=== PATIENT | male | born 1970 | race Caucasian/White ===

== ENCOUNTER 2019-11-27 10:11 | Emergency (ER) | payer OTHER ==
[~2019-11-27] VITALS: Ht 172.7 cm; Wt 95.0 kg
[2019-11-27 11:57] VITALS: BP 131/89
== END 2019-11-27 11:57 | disposition home or self-care (01) | DRG 605 ==
LOC: ED 10:11
DX: S80.11XA Contusion of right lower leg, initial encounter (principal); F17.290 Nicotine dependence, other tobacco product, uncomplicated; W55.22XA Struck by cow, initial encounter

== ENCOUNTER 2020-03-31 13:50 | Emergency (ER) | payer SELFPAY ==
[~2020-03-31] VITALS: Ht 172.7 cm; Wt 95.0 kg
[2020-03-31 15:15] VITALS: BP 150/87
== END 2020-03-31 15:15 | disposition left against medical advice (07) | DRG 125 ==
LOC: ED 13:50
PROC: 0HQ1XZZ Repair Face Skin, External Approach (ICD-10-PCS; principal; 2020-03-31)
DX: S01.112A Laceration without foreign body of left eyelid and periocular area, initial encounter (principal); F17.200 Nicotine dependence, unspecified, uncomplicated; W20.8XXA Other cause of strike by thrown, projected or falling object, initial encounter; Y93.K9 Activity, other involving animal care; Y92.79 Other farm location as the place of occurrence of the external cause; Z91.19 Patient's noncompliance with other medical treatment and regimen

== ENCOUNTER 2021-06-05 22:21 | Emergency (ER) | payer OTHER ==
[~2021-06-05] VITALS: Ht 172.7 cm; Wt 90.0 kg
[2021-06-05 22:38] VITALS: BP 128/78
[2021-06-05] MEDS ORDERED: OXYCODONE5 M1 PO (22:58)
[2021-06-05] MEDS ORDERED: NERVE PILL (22:58)
[2021-06-05] MEDS ORDERED: MUSCLE RELAXER (22:59)
[2021-06-05 23:00] VITALS: BP 128/81
[2021-06-05] MEDS ORDERED: WAL-PROFEN200 M1 PO (23:00)
[2021-06-05 23:05] LABS: HEMATOCRIT 39.7 % (39.0-50.0); HEMOGLOBIN 13.4 g/dl (14.0-18.0); IMMATURE GRANULOCYTES 0.2 % (0.0-5.0); MEAN CELL VOLUME 97.8 fL CALC (80.0-100.0); MEAN CORPUSCULAR HGB CONC 33.8 g/dL CAL (32.0-36.0); NEUT# 5.05 thou/uL (1.82-7.42); RED BLOOD COUNT 4.06 mill/uL (4.70-6.10); RED CELL DISTRI WIDTH 11.9 % (11.5-15.5)
[2021-06-05 23:31] VITALS: BP 125/76
[2021-06-05 23:33] LABS: ALBUMIN 4.1 g/dL (3.2-5.0); ALKALINE PHOSPHATASE 158 u/l (38-126); AMYLASE 51 u/l (30-110); ANION GAP 12 (6-22 (CALC)); BILIRUBIN, TOTAL 0.3 mg/dL (0.0-1.4); BUN 16 mg/dL (9-20); BUN/CREATININE RATIO 19 (12-20 (CALC)); CARBON DIOXIDE 26 mmol/l (22-30); CHLORIDE 104 mmol/l (95-108); CREATININE 0.8 mg/dL (0.7-1.3); GFR > 60 ML/MIN (>=60 (CALC)); GFR FOR AFR.AMER. > 60 ML/MIN (>=60 (CALC)); LIPASE 81 u/l (23-300); SGOT/AST 35 u/l (17-59); SODIUM 138 mmol/l (137-146); TOTAL PROTEIN 6.8 g/dL (6.3-8.2)
[2021-06-05 23:45] LABS: MYOGLOBIN 27 ng/mL (0 - 121)
[2021-06-06] VITALS (9 sets, daily range): BP systolic 108–183; BP diastolic 63–108
[2021-06-06] MEDS ORDERED: PREVACID30 M3 PO (03:02)
== END 2021-06-06 03:15 | disposition left against medical advice (07) | DRG 313 ==
LOC: ED 22:21
PROVIDERS: Emergency Medicine
DX: R07.9 Chest pain, unspecified (principal); F17.200 Nicotine dependence, unspecified, uncomplicated; S42.002D Fracture of unspecified part of left clavicle, subsequent encounter for fracture with routine healing; S32.9XXD Fracture of unspecified parts of lumbosacral spine and pelvis, subsequent encounter for fracture with routine healing; V80.010D Animal-rider injured by fall from or being thrown from horse in noncollision accident, subsequent encounter; Z91.19 Patient's noncompliance with other medical treatment and regimen
CPT/HCPCS: Q9967; S0164